=== PATIENT | female | born 1940 | race Caucasian/White ===

== ENCOUNTER 2017-10-11 20:09 | Emergency (ER) | payer MEDICARE, BC ==
[2017-10-11 20:22] VITALS: RESP 20
[2017-10-11] MEDS ORDERED: DIPH,PERTUS(ACELL)TETVAC-LF 0.5 ML VIAL IM ONE (20:45)
[2017-10-11] MEDS ORDERED: ACETAMINOPHEN TAB 325 MG TAB PO STA (20:45)
--- NOTE | 2017-10-11 21:19 | CT ---
EXAMINATION TYPE: CT brain joannaine wo con DATE OF EXAM: 10/11/2017 COMPARISON: NONE HISTORY: Hematoma to left parietal side from fall injury. CT DLP: 1302 mGycm. Automated Exposure Control for Dose Reduction was Utilized. TECHNIQUE: CT scan of the head and cervical spine are performed without contrast. FINDINGS: There is a left parietal scalp hematoma measuring 1.7 cm in greatest thickness. No underly ing calvarial fracture or intracranial hemorrhage is identified. Symmetric prominence of the ventricu lar system and peripheral sulci are compatible with age-related volume loss. Few foci of periventricu lar hypoattenuation are seen, most commonly on the basis of chronic microangiopathy. No suspicious ex tra axial fluid collection. The globes are intact and the visualized sinuses are clear. Cervical spine is visualized in its entirety from C1 through upper thoracic levels and demonstrates s atisfactory alignment without evidence of acute fracture or dislocation. Prevertebral soft tissue ap pears within normal limits. Moderate multilevel degenerative disc disease is seen with moderate neura l foraminal narrowing on the right at C3-C4, moderate to severe on the left at C4-C5, moderate to sev ere on the left and moderate on the right at C5-C6, moderate bilaterally at C6-C7, and mild bilateral ly at 71. There is straightening of usual cervical lordosis. Small posterior disc osteophytic complex es are seen at C4-C5, C5-C6, and C6-C7 as well as to a lesser degree at C7-T1 with mild central canal stenosis at C4-C5. There is degenerative narrowing of the atlantodental interval. Valuation for disc herniation is limited on CT. The C1-C2 articulation is unremarkable. IMPRESSION: 1. There is no acute fracture or dislocation evident in the cervical spine. 2. Left parietal scalp hematoma measuring 1.7 cm with no underlying calvarial fracture or intracrania l hemorrhage. No acute intracranial process. 3. Moderate multilevel degenerative cervical spine resulting in mild spinal canal stenosis at C4-C5 a nd variable degrees of neural foraminal narrowing as described above.
[2017-10-11] MEDS ORDERED: TOPICAL SKIN ADHESIVE 1 EACH AMP TOPICAL ONE (21:40)
--- NOTE | 2017-10-11 21:57 | ED ---
Fall HPI - General Chief Complaint: Fall Stated Complaint: fall/hit head Time Seen by Provider: 10/11/17 20:26 Source: patient Mode of arrival: wheelchair - History of Present Illness Initial Comments: 77 year-old female patient presents to the emergency department today for evaluation after experiencing a fall at home. Patient states that around 7:45 PM she was coming up the stairs when she tripped forward and fell striking her head on the wall. Patient denies any loss of consciousness with the injury. She does report pain to the left forehead. She denies any generalized headache , blurred vision, double vision, dizziness, weakness. Patient was ambulatory after the incident. Denies any leg, hip pain, or upper extremity pain. Denies any nausea or vomiting. Patient denies any neck or back pain. Denies any other injuries. Patient denies any chest pain, shortness of breath, abdominal pain, or difficulties with bowel movements or urination. Patient is unsure when her last tetanus vaccine was given. She does take a baby aspirin daily, however no other anticoagulant medications. - Related Data Home Medications Medication Instructions Recorded Confirmed Aspirin [Adult Low Dose Aspirin EC] 81 mg PO DAILY 10/11/17 10/11/17 Atenolol [Tenormin] 50 mg PO DAILY 10/11/17 10/11/17 Atorvastatin [Lipitor] 10 mg PO HS 10/11/17 10/11/17 Baclofen [Lioresal] 10 mg PO DAILY PRN 10/11/17 10/11/17 Enalapril [Vasotec] 20 mg PO BID 10/11/17 10/11/17 Meloxicam [Mobic] 7.5 mg PO DAILY PRN 10/11/17 10/11/17 Oxybutynin Chloride [Ditropan] 5 mg PO DAILY 10/11/17 10/11/17 busPIRone HCl [Buspar] 10 mg PO TID PRN 10/11/17 10/11/17 Allergies Allergy/AdvReac Type Severity Reaction Status Date / Time Penicillins Allergy Rash/Hives Verified 10/11/17 20:56 Review of Systems ROS Statement: Those systems with pertinent positive or pertinent negative responses have been documented in the HPI. ROS Other: All systems not noted in ROS Statement are negative. Past Medical History Past Medical History: Hyperlipidemia, Hypertension, Supraventricular Tachycardia (SVT) History of Any Multi-Drug Resistant Organisms: None Reported Past Surgical History: Ablation, Hysterectomy, Orthopedic Surgery Past Psychological History: No Psychological Hx Reported Smoking Status: Never smoker Past Alcohol Use History: None Reported Past Drug Use History: None Reported General Exam Limitations: no limitations General appearance: alert, in no apparent distress, other (This is a pleasant elderly female patient in no acute distress. Vital signs upon presentation are temperature 97.9F, pulse 92, respirations 20, blood pressure 151/89, pulse ox 97% on room air.) Head exam: Present: other (And has a hematoma, laceration noted to the left forehead. Swelling extends over into the left upper orbit.) Eye exam: Present: normal appearance, PERRL, EOMI (Without pain or limitation). Absent: scleral icterus, conjunctival injection, periorbital swelling, periorbital tenderness ENT exam: Present: normal exam, normal oropharynx, mucous membranes moist Neck exam: Present: normal inspection, full ROM, other (Nontender, no step-off, no deformity to firm midline palpation of the posterior cervical spine. Full range of motion without pain or limitation.). Absent: tenderness, meningismus, lymphadenopathy Respiratory exam: Present: normal lung sounds bilaterally. Absent: respiratory distress, wheezes, rales, rhonchi, stridor Cardiovascular Exam: Present: regular rate, normal rhythm, normal heart sounds. Absent: systolic murmur, diastolic murmur, rubs, gallop, clicks GI/Abdominal exam: Present: soft, normal bowel sounds. Absent: distended, tenderness, guarding, rebound, rigid Back exam: Present: normal inspection, other (Nontender, no step-off, no deformity to firm midline palpation of the thoracic and lumbar vertebrae. Full range of motion without pain or limitation.). Absent: vertebral tenderness Neurological exam: Present: alert, oriented X3, CN II-XII intact, other ( Acutely responsive) Psychiatric exam: Present: normal affect, normal mood Skin exam: Present: warm, dry, intact, normal color. Absent: rash Course Vital Signs 10/11/17 10/11/17 20:18 22:15 Temperature 97.9 F 97.4 F L Pulse Rate 92 82 Respiratory 20 20 Rate Blood Pressure 151/89 150/93 O2 Sat by Pulse 97 93 L Oximetry Procedures - Laceration Laceration #1 Time Out Performed: Yes Indication: laceration Site: scalp (Left upper forehead) Size (cm): 1 Description: linear Depth: simple, single layer Type of Sutures: other (Dermabond) Patient Tolerated Procedure: well, no complications Medical Decision Making - Medical Decision Making 77-year-old female patient presents to the emergency department today for evaluation after experiencing a fall at home. Physical examination does reveal left forehead hematoma with a 1 cm laceration. Patient is neurologically intact. Strength in all 4 extremities is 5/5. We did perform computed tomography scan of the head and her vehicle spine which showed no acute abnormalities other than a 1.7 cm hematoma to the left frontal scalp. We did repair the laceration with Dermabond. Patient was given Tylenol, did report improvement of her symptoms. We did discuss signs or symptoms of worsening head injury. Signs or symptoms of infection. She is instructed to follow-up with the primary care physician for recheck tomorrow. She is instructed to return here immediately for any new, worsening, or concerning symptoms. She verbalizes understanding and agrees this plan. - Radiology Data Radiology results: report reviewed, image reviewed CT of the brain and C-spine without contrast was performed. Report was reviewed in its entirety. Impression by Dr. Mart shows no acute fracture dislocation evident in the C-spine. Left parietal scalp hematoma measuring 1.7 cm with no underlying calvarial fracture or intracranial hemorrhage. No acute intracranial process. Moderate multilevel degenerative cervical spine resulting in mild spinal canal stenosis at C4 to 5 and variable degrees of neural foraminal narrowing as described above. Disposition Clinical Impression: Traumatic hematoma of forehead, Laceration of forehead without complication, Head injury Disposition: HOME SELF-CARE Condition: Good Instructions: Laceration (ED), Fall Prevention for Older Adults (ED), Head Injury (ED), Skin Adhesive Care (ED), Hematoma (ED) Additional Instructions: Apply ice to the left forehead 20 minutes at a time at least 4 times daily. Monitor wound for signs or symptoms of infection this includes redness, swelling , drainage of pus, fever, or chills. Monitor for signs or symptoms of worsening head injury including but not limited to confusion, dizziness, weakness, persistent headache, nausea, or vomiting. Follow-up with your primary care physician for recheck in 1-2 days. Return here immediately for any new, worsening, or concerning symptoms. Referrals: Rick Kim MD [Primary Care Provider] - 1-2 days Time of Disposition: 21:57
[2017-10-11 22:16] VITALS: BP 150/93; PULSE 82; TEMP 97.4
== END 2017-10-11 22:54 | disposition home or self-care (01) ==
LOC: EC 20:09
DX: S01.81XA Laceration without foreign body of other part of head, initial encounter (principal); E78.5 Hyperlipidemia, unspecified; I10 Essential (primary) hypertension; I47.1 Supraventricular tachycardia; Z23 Encounter for immunization; Z88.0 Allergy status to penicillin; Z79.82 Long term (current) use of aspirin; Z79.899 Other long term (current) drug therapy; W10.9XXA Fall (on) (from) unspecified stairs and steps, initial encounter; Y92.009 Unspecified place in unspecified non-institutional (private) residence as the place of occurrence of the external cause
CPT/HCPCS: 12011; 70450; 72125; 90471; 90715; 99283

== ENCOUNTER 2020-04-22 15:23 | Observation (INO) | payer MEDICARE, BC ==
[2020-04-22] MEDS ORDERED: ONDANSETRON 4 MG/2 ML VIAL IVP STA (15:41)
[2020-04-22] MEDS ORDERED: SODIUM CHLORIDE 0.9% 500 ML 500 ML IV STA (15:41)
--- NOTE | 2020-04-22 15:42 | ED ---
General Adult HPI - General Chief complaint: Weakness Stated complaint: weakness/nausea Time Seen by Provider: 04/22/20 15:30 Source: patient Mode of arrival: wheelchair Limitations: no limitations - History of Present Illness Initial comments: Dictation was produced using [employer] dictation software. please excuse any grammatical, word or spelling errors. This patient was cared for during a federal and state declared state of emergency secondary to Covid 19 Chief Complaint: 80-year-old female past medical history dyslipidemia hypert ension and SVT presents with generalized weakness fatigue and nausea. History of Present Illness: She complains of nausea since yesterday. She states she woke up yesterday feeling absolutely fine. At around lunchtime she began feeling weak and fatigued. She began dry heaving. She has not had any episodes of vomiting. No diarrhea. She has no pain complaints. Patient states that her symptoms remind her of when she was diagnosed with cardiac arrhythmia. She does have history of cardiac ablation. she feels like she does have sensation of the room spinning. She reports that her symptoms are worse with movement especially head movements. She is not having any difficulties with ambulating. She does not feel ataxic or weak or numb in any of her extremities. She has been feeling chills. But denies any fevers or night sweats. The ROS documented in this emergency department record has been reviewed and confirmed by me. Those systems with pertinent positive or negative responses h ave been documented in the HPI. All other systems are other negative and/or noncontributory. PHYSICAL EXAM: General Impression: Alert and oriented x3, not in acute distress HEENT: Normocephalic atraumatic, extra-ocular movements intact, pupils equal and reactive to light bilaterally, mucous membranes moist. Cardiovascular: Heart regular rate and rhythm Chest: Able to complete full sentences, no retractions, no tachypnea Abdomen: abdomen soft, non-tender, non-distended, no organomegaly Musculoskeletal: Pulses present and equal in all extremities, no peripheral edema Motor: no focal deficits noted Neurological: CN II-XII grossly intact, no focal motor or sensory deficits noted Skin: Intact with no visualized rashes Psych: Normal affect and mood ED course: 80-year-old female with past medical history of dyslipidemia hypertension and cardiac dysrhythmia status post ablation presents with generalized weakness fatigue and nausea. Upon arrival shows heart rate of 120. Her pulse feels regular. Her lungs are clear. She has no murmurs. Vital signs are within acceptable limits. She denies any GI symptoms. she has features of benign positional vertigo.labs are within acceptable limits. She has no clear reason for her symptoms. Patient's given Antivert and Zofran and Reglan with very minimal improvement of symptoms. Patient lives at home alone. Disposition options were discussed. Patient is agreeable for admission with consultation to cardiology for persistent tachycardia that didn't really improved with intravenous fluids. She does take a beta kelly. She reports compliance with her medications. Case was discussed with Dr. Musa who is willing to accept patient's care to the observation unit. EKG interpretation: Ventricular rate 112, sinus tachycardia, MT interval 92, QRS 78, QTc 450. No MT prolongation, no QTC prolongation, no ST or T-wave changes noted. No old EKG for comparison. Overall, this EKG is unremarkable - Related Data Home Medications Medication Instructions Recorded Confirmed Aspirin [Adult Low Dose Aspirin EC] 81 mg PO DAILY 10/11/17 04/22/20 Atorvastatin [Lipitor] 10 mg PO DAILY 10/11/17 04/22/20 Baclofen [Lioresal] 10 mg PO DAILY PRN 10/11/17 04/22/20 Meloxicam [Mobic] 7.5 mg PO BID PRN 10/11/17 04/22/20 Oxybutynin Chloride [Ditropan] 5 mg PO DAILY 10/11/17 04/22/20 atenoloL [Tenormin] 50 mg PO DAILY 10/11/17 04/22/20 busPIRone HCl [Buspar] 15 mg PO BID 10/11/17 04/22/20 Allopurinol [Zyloprim] 100 mg PO DAILY 04/22/20 04/22/20 Lisinopril-Hctz 20-25 mg 1 tab PO DAILY 04/22/20 04/22/20 [Zestoretic 20-25] Omeprazole 20 mg PO DAILY PRN 04/22/20 04/22/20 amLODIPine [Norvasc] 5 mg PO HS 04/22/20 04/22/20 Allergies Allergy/AdvReac Type Severity Reaction Status Date / Time Penicillins Allergy Rash/Hives Verified 04/22/20 16:51 Review of Systems ROS Statement: Those systems with pertinent positive or pertinent negative responses have been documented in the HPI. ROS Other: All systems not noted in ROS Statement are negative. Past Medical History Past Medical History: Hyperlipidemia, Hypertension, Supraventricular Tachycardia (SVT) History of Any Multi-Drug Resistant Organisms: None Reported Past Surgical History: Ablation, Hysterectomy, Orthopedic Surgery Past Psychological History: No Psychological Hx Reported Smoking Status: Never smoker Past Alcohol Use History: Rare Past Drug Use History: None Reported General Exam Limitations: no limitations Course Vital Signs 04/22/20 04/22/20 04/22/20 15:24 16:22 16:44 Temperature 97.8 F 97.9 F 97.9 F Pulse Rate 120 H 112 H 110 H Pulse Rate [ 112 H Filter Operator ] Respiratory 18 14 14 Rate Blood Pressure 163/89 138/93 135/89 O2 Sat by Pulse 99 96 Oximetry 04/22/20 04/22/20 17:07 17:53 Temperature 97.9 F Pulse Rate 112 H 109 H Pulse Rate [ Filter Operator ] Respiratory 14 14 Rate Blood Pressure 141/84 142/80 O2 Sat by Pulse 98 97 Oximetry Medical Decision Making - Lab Data Result diagrams: 04/22/20 16:22 04/22/20 16:22 Lab Results 04/22/20 04/22/20 04/22/20 Range/Units 16:22 16:22 16:22 WBC 7.0 (3.8-10.6) k/uL RBC 4.05 (3.80-5.40) m/uL Hgb 13.0 (11.4-16.0) gm/dL Hct 39.8 (34.0-46.0) % MCV 98.2 (80.0-100.0) fL MCH 32.1 (25.0-35.0) pg MCHC 32.7 (31.0-37.0) g/dL RDW 12.7 (11.5-15.5) % Plt Count 245 (150-450) k/uL Neutrophils % 82 % Lymphocytes % 13 % Monocytes % 4 % Eosinophils % 0 % Basophils % 0 % Neutrophils # 5.7 (1.3-7.7) k/uL Lymphocytes # 0.9 L (1.0-4.8) k/uL Monocytes # 0.3 (0-1.0) k/uL Eosinophils # 0.0 (0-0.7) k/uL Basophils # 0.0 (0-0.2) k/uL Sodium 138 (137-145) mmol/L Potassium 4.2 (3.5-5.1) mmol/L Chloride 102 (98-107) mmol/L Carbon Dioxide 24 (22-30) mmol/L Anion Gap 12 mmol/L BUN 14 (7-17) mg/dL Creatinine 0.84 (0.52-1.04) mg/dL Est GFR (CKD-EPI)AfAm 76 (>60 ml/min/1.73 sqM) Est GFR (CKD-EPI)NonAf 66 (>60 ml/min/1.73 sqM) Glucose 111 H (74-99) mg/dL Plasma Lactic Acid [place] (0.7-2.0) mmol/L Calcium 10.4 H (8.4-10.2) mg/dL Magnesium 1.8 (1.6-2.3) mg/dL Total Bilirubin 1.2 (0.2-1.3) mg/dL AST 38 H (14-36) U/L ALT 27 (4-34) U/L Alkaline Phosphatase 78 (38-126) U/L Troponin I (0.000-0.034) ng/mL NT-Pro-B Natriuret Pep pg/mL Total Protein 8.3 H (6.3-8.2) g/dL Albumin 5.3 H (3.5-5.0) g/dL Lipase 162 (23-300) U/L Urine Color Light Yellow Urine Appearance Clear (Clear) Urine pH 5.5 (5.0-8.0) Ur Specific [place] 1.004 (1.001-1.035) Urine Protein Negative (Negative) Urine Glucose (UA) Negative (Negative) Urine Ketones Negative (Negative) Urine Blood Negative (Negative) Urine Nitrite Negative (Negative) Urine Bilirubin Negative (Negative) Urine Urobilinogen <2.0 (<2.0) mg/dL Ur Leukocyte Esterase Trace H (Negative) Urine RBC <1 (0-5) /hpf Urine WBC 2 (0-5) /hpf Ur Squamous Epith Cells <1 (0-4) /hpf Urine Bacteria Rare H (None) /hpf 04/22/20 04/22/20 04/22/20 Range/Units 16:22 16:22 16:22 WBC (3.8-10.6) k/uL RBC (3.80-5.40) m/uL Hgb (11.4-16.0) gm/dL Hct (34.0-46.0) % MCV (80.0-100.0) fL MCH (25.0-35.0) pg MCHC (31.0-37.0) g/dL RDW (11.5-15.5) % Plt Count (150-450) k/uL Neutrophils % % Lymphocytes % % Monocytes % % Eosinophils % % Basophils % % Neutrophils # (1.3-7.7) k/uL Lymphocytes # (1.0-4.8) k/uL Monocytes # (0-1.0) k/uL Eosinophils # (0-0.7) k/uL Basophils # (0-0.2) k/uL Sodium (137-145) mmol/L Potassium (3.5-5.1) mmol/L Chloride (98-107) mmol/L Carbon Dioxide (22-30) mmol/L Anion Gap mmol/L BUN (7-17) mg/dL Creatinine (0.52-1.04) mg/dL Est GFR (CKD-EPI)AfAm (>60 ml/min/1.73 sqM) Est GFR (CKD-EPI)NonAf (>60 ml/min/1.73 sqM) Glucose (74-99) mg/dL Plasma Lactic Acid [place] 1.4 (0.7-2.0) mmol/L Calcium (8.4-10.2) mg/dL Magnesium (1.6-2.3) mg/dL Total Bilirubin (0.2-1.3) mg/dL AST (14-36) U/L ALT (4-34) U/L Alkaline Phosphatase (38-126) U/L Troponin I <0.012 (0.000-0.034) ng/mL NT-Pro-B Natriuret Pep 113 pg/mL Total Protein (6.3-8.2) g/dL Albumin (3.5-5.0) g/dL Lipase (23-300) U/L Urine Color Urine Appearance (Clear) Urine pH (5.0-8.0) Ur Specific [place] (1.001-1.035) Urine Protein (Negative) Urine Glucose (UA) (Negative) Urine Ketones (Negative) Urine Blood (Negative) Urine Nitrite (Negative) Urine Bilirubin (Negative) Urine Urobilinogen (<2.0) mg/dL Ur Leukocyte Esterase (Negative) Urine RBC (0-5) /hpf Urine WBC (0-5) /hpf Ur Squamous Epith Cells (0-4) /hpf Urine Bacteria (None) /hpf Disposition Clinical Impression: Tachycardia, Dizziness Disposition: ADMITTED IP TO THIS HOSP Condition: Fair Referrals: Rick Kim MD [STAFF PHYSICIAN] - 1-2 days Decision Time: 18:30
[2020-04-22 16:27] LABS: Basophils % (A) 0 %; Eosinophils % (A) 0 %; HCT 39.8 % (34.0-46.0); Lymphocytes # (A) 0.9 k/uL (1.0-4.8); Lymphocytes % (A) 13 %; MCH 32.1 pg (25.0-35.0); MCHC 32.7 g/dL (31.0-37.0); MCV 98.2 fL (80.0-100.0); Mean Platelet Volume 6.9; Monocytes # (A) 0.3 k/uL (0-1.0); Monocytes % (A) 4 %; Neutrophils # (A) 5.7 k/uL (1.3-7.7); Neutrophils % (A) 82 %; Platelet Count 245 k/uL (150-450); RBC 4.05 m/uL (3.80-5.40); RDW 12.7 % (11.5-15.5)
[2020-04-22 16:35] LABS: Albumin 5.3 g/dL (3.5-5.0); Calcium 10.4 mg/dL (8.4-10.2); Magnesium 1.8 mg/dL (1.6-2.3); Potassium 4.2 mmol/L (3.5-5.1); Total Bilirubin 1.2 mg/dL (0.2-1.3); Total Protein 8.3 g/dL (6.3-8.2)
[2020-04-22 16:43] LABS: Appearance,Urine Clear (Clear); Bacteria,Urine Rare /hpf; Bilirubin,Urine Negative (Negative); Blood,Urine Negative (Negative); Color,Urine Light Yellow; Glucose,Urine (UA) Negative (Negative); Ketones,Urine Negative (Negative); Leukocyte Esterase,Urine Trace (Negative); Nitrite,Urine Negative (Negative); PH, Urine 5.5 (5.0-8.0); Protein,Urine Negative (Negative); RBC,Urine <1 /hpf (0-5); Specific Gravity,Urine 1.004 (1.001-1.035); Squamous Epithelial Cell,Urine <1 /hpf (0-4); Urobilinogen,Urine <2.0 mg/dL (<2.0); WBC,Urine 2 /hpf (0-5)
[2020-04-22] MEDS ORDERED: MECLIZINE 12.5 MG TAB PO STA (16:59)
[2020-04-22] MEDS ORDERED: METOCLOPRAMIDE 5 MG/ML 2 ML VIAL IVP STA (17:01)
[2020-04-22] MEDS ORDERED: SODIUM CHLORIDE 0.9% 1,000 ML IV STA (18:14)
[2020-04-22] MEDS ORDERED: NALOXONE 0.4 MG/ML 1 ML VIAL IV PRN (18:26)
[2020-04-22] MEDS ORDERED: ACETAMINOPHEN TAB 325 MG TAB PO PRN (18:26)
--- NOTE | 2020-04-22 18:33 | XR ---
EXAMINATION TYPE: XR chest 2V DATE OF EXAM: 04/22/2020 COMPARISON: NONE HISTORY: Tachycardia TECHNIQUE: 2 views FINDINGS: Heart is normal. Lungs are clear of infiltrate. There is no heart failure. There are chest leads. There is some arthritic change at the shoulder joints. IMPRESSION: No active cardiopulmonary disease. Normal heart. No change.
[2020-04-22] MEDS: SODIUM CHLORIDE 0.9% 1,000 ML IV SCH (21:09)
[2020-04-22] MEDS ORDERED: PANTOPRAZOLE 40 MG TABLET PO PRN (21:59)
[2020-04-22] MEDS ORDERED: amLODIPine 5 MG TAB PO SCH (22:00)
[2020-04-22] MEDS: ATORVASTATIN 10 MG TAB PO SCH (22:42)
[2020-04-22] MEDS: busPIRone HCl 10 MG TAB PO SCH (22:42)
--- NOTE | 2020-04-22 23:49 | P.HPIM ---
History of Present Illness H&P Date: 04/22/20 Chief Complaint: Severe arrhythmia, severe tiredness, history of A. fib, hyp ertension and hy 80-year-old female one of Dr. Osmar Kim's patient with past medical history of A. fib post ablation 12 years ago, history of hypertension hyperlipidemia and still having supraventricular tachycardia on and off. Patient has been doing very well has not been in the hospital for long time she is taking her medication on time with no major problem. In the last 48 hours patient to look to have all the sudden severe onset of tiredness fatigue lightheadedness and dizziness not feeling well with mild shortness of breath without chest pain and Feeling her heart is pounding with more arrhythmia than before and felt to be slightly bit tachycardic. Patient today have an episode lasted little bit longer than expected and did not feel good with it was worried about being in A. fib with rapid ventricular tachycardia might require more attention ended up asking her neighbor to drive her to the emergency department where was seen at [facility]. Patient heart monitor and EKG showed significant tachycardia with pulse rate running over 120 beats per minutes look more regular with slight PVCs with no sign of A. fib at the time. Her lab values did not show any abnormality in her UA TSH was normal her total protein was mildly elevated with mildly elevated calcium as well. Pat ient CK with troponin was negative with decided to admit patient to the hospital we will let titrate her beta kelly for now keep watching overnight for any A. fib any elevated troponin echocardiogram will be order and patient be seen cardiology tomorrow. Review of Systems CONSTITUTIONAL: Well-developed no acute respiratory distress. EYES: No icterus sclerae, no conjunctivitis. EARS, NOSE, MOUTH, THROAT, and FACE: No sore throat, lymphadenopathy, carotid bruits or deformity. RESPIRATORY: Mild shortness of breath no cough or wheezes. CARDIOVASCULAR: Positive PND orthopnea positive palpitation no angina. GASTROINTESTINAL: No Abd pain, Nausea or vomiting, no Diarrhea or constipation, No GI Bleed, no distention or masses. GENITOURINARY: Negative for Hematuria or UTI, no kidney stones. INTEGUMENT/BREAST: Negative for any muscular injury with mild osteoarthritis.. HEMATOLOGIC/LYMPHATIC: Negative for bleed or purpura. MUSCULOSKELTAL: Negative for Myalgia or arthralgia. NEURLOGICAL: No LOC, Sz or syncope, blurred vision dizziness or abnormality.. BEHAVIORAL/PSYCH: Negative. ENDOCRINE: Negative. Social history: Patient does not smoke, [place] and abuse, she is and lives home alone. Family history: Her father dying in his 80s from metastasis take bone cancer, mother dying in her 80s from cancer possible breast. Patient had 4 siblings 2 brothers and 2 sister all living and well she had 5 children one of them committed suicide the rest are doing very well. Past Medical History Past Medical History: Hyperlipidemia, Hypertension, Supraventricular Tachycardia (SVT) History of Any Multi-Drug Resistant Organisms: None Reported Past Surgical History: Ablation, Hysterectomy, Orthopedic Surgery Past Psychological History: No Psychological Hx Reported Smoking Status: Never smoker Past Alcohol Use History: Rare Past Drug Use History: None Reported Medications and Allergies Home Medications Medication Instructions Recorded Confirmed Type Aspirin [Adult Low Dose Aspirin EC] 81 mg PO DAILY 10/11/17 04/22/20 History Atorvastatin [Lipitor] 10 mg PO DAILY 10/11/17 04/22/20 History Baclofen [Lioresal] 10 mg PO DAILY PRN 10/11/17 04/22/20 History Meloxicam [Mobic] 7.5 mg PO BID PRN 10/11/17 04/22/20 History Oxybutynin Chloride [Ditropan] 5 mg PO DAILY 10/11/17 04/22/20 History atenoloL [Tenormin] 50 mg PO DAILY 10/11/17 04/22/20 History busPIRone HCl [Buspar] 15 mg PO BID 10/11/17 04/22/20 History Allopurinol [Zyloprim] 100 mg PO DAILY 04/22/20 04/22/20 History Lisinopril-Hctz 20-25 mg 1 tab PO DAILY 04/22/20 04/22/20 History [Zestoretic 20-25] Omeprazole 20 mg PO DAILY PRN 04/22/20 04/22/20 History amLODIPine [Norvasc] 5 mg PO HS 04/22/20 04/22/20 History Allergies Allergy/AdvReac Type Severity Reaction Status Date / Time Penicillins Allergy Rash/Hives Verified 04/22/20 16:51 Physical Exam Vitals: Vital Signs Temp Pulse Pulse Pulse Resp BP BP 04/22/20 19:05 98.6 F 104 H 17 121/71 04/22/20 17:53 109 H 14 142/80 04/22/20 17:07 97.9 F 112 H 14 141/84 04/22/20 16:44 97.9 F 110 H 14 135/89 04/22/20 16:22 97.9 F 112 H 112 H 14 138/93 04/22/20 15:24 97.8 F 120 H 18 163/89 Pulse Ox 04/22/20 19:05 96 04/22/20 17:53 97 04/22/20 17:07 98 04/22/20 16:44 96 04/22/20 16:22 04/22/20 15:24 99 Intake and Output 04/22/20 04/22/20 04/23/20 14:59 22:59 06:59 Intake Total 200 Balance 200 Intake: Oral 200 Other: Weight 66.224 kg General Appearance: Alert, cooperative, no distress, appears stated age. Neck HEENT: Supple, no lymphadenopathy, no thyroid enlargement, no carotid bruits. Lungs: Clear to auscultation without crackles or wheezes no rhonchi, no deformity. Chest Wall: Chest wall normal expansion with deep inspiration no tenderness and no deformity was found on exam, no costochondral pain or discomfort. Heart: Regular rate and rhythm, S1, S2 positive history positive mild tachycardia. Back: Symmetric, no curvature, ROM normal, no CVA tenderness. Abdomen: Soft, non-tender, bowel sounds active all four quadrants, no masses, no organomegaly. Extremities: Extremities normal, atraumatic, no cyanosis or edema. Pulses: 2+ and symmetric. Skin: Skin color, texture, tugor normal, no rashes or lesions. Neurologic: Alert oriented x3 cranial nerves II through XII intact, no motor deficit, no abnormal balance or gait. Results CBC & Chem 7: 04/22/20 16:22 04/22/20 16:22 Labs: Abnormal Lab Results - Last 24 Hours (Table) 04/22/20 04/22/20 04/22/20 Range/Units 16:22 16:22 16:22 Lymphocytes # 0.9 L (1.0-4.8) k/uL Glucose 111 H (74-99) mg/dL Calcium 10.4 H (8.4-10.2) mg/dL AST 38 H (14-36) U/L Total Protein 8.3 H (6.3-8.2) g/dL Albumin 5.3 H (3.5-5.0) g/dL Ur Leukocyte Esterase Trace H (Negative) Urine Bacteria Rare H (None) /hpf Thrombosis Risk Factor Assmnt - DVT/VTE Prophylaxis DVT/VTE Prophylaxis: Pharmacologic Prophylaxis ordered, Mechanical Prophylaxis ordered - Choose All That Apply Any of the Below Risk Factors Present?: Yes Each Factor Represents 1 point: Obesity (BMI >25) Other Risk Factors: Yes Each Risk Factor Represents 3 Points: Age 75 years or older Other congenital or acquired thrombophilia - If yes, enter type in comment: No Thrombosis Risk Factor Assessment Total Risk Factor Score: 4 Thrombosis Risk Factor Assessment Level: Moderate Risk Assessment and Plan Assessment: 1 severe tachycardia: So far looks like PVCs patient will be admitted to the hospital continue to watch for any A. fib or any abnormality, echocardiogram, Holter monitor and thyroid test will be done we'll consult cardiology patient beta kelly will be titrated this point. 2 severe tiredness fatigue and dizziness: Most likely secondary to arrhythmia with mild hypertension and mild hypoxia from tachycardia continue to watch for any other abnormality with her hemodynamic status. 3 history of A. fib with RVR: Post ablation therapy patient remain on beta kelly currently she is not in any anticoagulation. 4 hypertension: Remain on amlodipine 5 mg a day along with lisinopril HCT 20/25 mg daily and atenolol 50 mg daily continue medication. 5 hyperlipidemia: Remain on atorvastatin 10 mg daily continue medication. 6 overactive bladder: Remain on oxybutynin 5 mg a day. 7 severe GERD: On omeprazole 20 mg a day. 8 history of gout: Well control so far been on allopurinol 100 mg daily. 9 GI prophylaxis: Remain on omeprazole. 10 DVT prophylaxis: Patient be on heparin subcutaneous for now. CODE STATUS: Full code. Admit patient to observation status for overnight stay.
[2020-04-23] MEDS ORDERED: MELOXICAM 7.5 MG TAB PO PRN
[2020-04-23] MEDS ORDERED: BACLOFEN 10 MG TAB PO PRN
[2020-04-23 08:05] VITALS: RESP 16; TEMP 98
[2020-04-23] MEDS: busPIRone HCl 10 MG TAB PO SCH (08:07)
[2020-04-23] MEDS: ATORVASTATIN 10 MG TAB PO SCH (08:07)
[2020-04-23] MEDS ORDERED: HEPARIN SODIUM,PORCINE 5,000 UNIT/ML 1 ML VIAL SQ SCH (09:00)
[2020-04-23] MEDS ORDERED: OXYBUTYNIN CHLORIDE 5 MG TAB PO SCH (09:00)
[2020-04-23] MEDS ORDERED: atenoloL 50 MG TAB PO SCH ×3 (09:00→21:00)
[2020-04-23] MEDS ORDERED: LISINOPRIL-HCTZ 20-25 MG 1 EACH TAB PO SCH (09:00)
[2020-04-23] MEDS ORDERED: allopurinoL 100 MG TAB PO SCH (09:00)
[2020-04-23] MEDS ORDERED: ASPIRIN 81 MG PO SCH (09:00)
[2020-04-23 09:13] LABS: Cholesterol 153 mg/dL (<200); HDL Cholesterol 56 mg/dL (40-60); LDL Cholesterol,Calculated 77 mg/dL (0-99); Triglycerides 101 mg/dL (<150)
[2020-04-23 09:15] LABS: Albumin 4.2 g/dL (3.5-5.0); Calcium 9.3 mg/dL (8.4-10.2); Magnesium 1.6 mg/dL (1.6-2.3); Total Bilirubin 1.4 mg/dL (0.2-1.3); Total Protein 6.6 g/dL (6.3-8.2)
[2020-04-23 09:26] LABS: Basophils % (A) 0 %; Eosinophils % (A) 1 %; HGB 11.4 gm/dL (11.4-16.0); Lymphocytes # (A) 0.7 k/uL (1.0-4.8); Lymphocytes % (A) 14 %; MCH 31.9 pg (25.0-35.0); MCHC 32.6 g/dL (31.0-37.0); MCV 97.9 fL (80.0-100.0); Mean Platelet Volume 6.9; Monocytes # (A) 0.2 k/uL (0-1.0); Monocytes % (A) 4 %; Neutrophils # (A) 3.9 k/uL (1.3-7.7); Neutrophils % (A) 80 %; Platelet Count 229 k/uL (150-450); RBC 3.57 m/uL (3.80-5.40); RDW 13.1 % (11.5-15.5); WBC 4.9 k/uL (3.8-10.6)
--- NOTE | 2020-04-23 10:01 | P.CRDCN ---
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 Hurt, hypertension and dyslipidemia. She does not follow in the office with a pc maintenance technician. We have been asked to see in consultation for tachycardia. Stented to the emergency department with a two-week history of intermittent nausea, palpitations and generalized weakness. Her nausea increased and severity yesterday prompting her to come to the hospital for further evaluation. On arrival an EKG was obtained revealing sinus tachycardia heart rate of 112. She does feel her heart racing fast. She states that she gets up and uses the restroom her heart rate increases. Telemetry tracings indicates sinus tachycard ia with no arrhythmias. She is seen and examined resting comfortably sitting up in bed in no acute distress. She states her nausea has subsided since admission. Blood pressure 130/75 heart rate currently 102. Laboratory data reviewed, WBC 4.9, hemoglobin 11.4, platelets 229, d-dimer 0.3, sodium 138, potassium 4.0, creatinine 0.84, magnesium 1.8, TSH 3.14, cardiac enzymes negative 1, NT proBNP 113, LDL 77 HDL 56. Currently maintained on atenolol 50 mg daily, aspirin 81 mg daily, atorvastatin 10 mg daily, lisinopril/HCTZ 20/25 mg daily and amlodipine 5 mg daily. REVIEW OF SYSTEMS At the time of my exam: CONSTITUTIONAL: Denies fever or chills. CARDIOVASCULAR: Denies chest pain, shortness of breath, orthopnea, PND or palpitations. RESPIRATORY: Denies cough. GASTROINTESTINAL: Denies abdominal pain, diarrhea, constipation, nausea or vomiting. MUSCULOSKELETAL: Denies myalgias. NEUROLOGIC: Denies numbness, tingling or weakness. ENDOCRINE: Denies fatigue, weight change, polydipsia or polyurina. GENITOURINARY: Denies burning, hematuria or urgency with micturation. HEMATOLOGIC: Denies history of anemia or bleeding. PHYSICAL EXAMINATION CONSTITUTIONAL: No apparent distress. HEENT: Head is normocephalic. Pupils are equal, round. Sclerae anicteric. Mucous membranes of the mouth are moist. No JVD. No carotid bruit. CHEST EXAMINATION: Lungs are clear to auscultation. No chest wall tenderness is noted on palpation or with deep breathing. HEART EXAMINATION: Regular rate and rhythm. S1, S2 heard. No murmurs, gallops or rub. ABDOMEN: Soft, nontender. Positive bowel sounds. EXTREMITIES: 2+ peripheral pulses, no lower extremity edema and no calf tenderness. NEUROLOGIC EXAMINATION: Patient is awake, alert and oriented x3. ASSESSMENT Sinus tachycardia Generalized weakness and fatigue Palpitations Nausea Hypertension Dyslipidemia, controlled on current medical regimen History of SVT status post ablation 12 years ago PLAN At this point there is no documented arrhythmia. Sinus mechanism with episodes of sinus tachycardia only noted. Increase atenolol to 50 mg BID. Discontinue amlodipine. Echocardiogram has been obtained and will be reviewed. Check for orthostatic changes. Thank you kindly for this consultation. Nurse Practitioner note has been reviewed, I agree with a documented findings and plan of care. Patient was seen and examined. Past Medical History Past Medical History: Hyperlipidemia, Hypertension, Supraventricular Tachycardia (SVT) History of Any Multi-Drug Resistant Organisms: None Reported Past Surgical History: Ablation, Hysterectomy, Orthopedic Surgery Past Psychological History: No Psychological Hx Reported Smoking Status: Never smoker Past Alcohol Use History: Rare Past Drug Use History: None Reported Medications and Allergies Home Medications Medication Instructions Recorded Confirmed Type Aspirin [Adult Low Dose Aspirin EC] 81 mg PO DAILY 10/11/17 04/22/20 History Atorvastatin [Lipitor] 10 mg PO DAILY 10/11/17 04/22/20 History Baclofen [Lioresal] 10 mg PO DAILY PRN 10/11/17 04/22/20 History Meloxicam [Mobic] 7.5 mg PO BID PRN 10/11/17 04/22/20 History Oxybutynin Chloride [Ditropan] 5 mg PO DAILY 10/11/17 04/22/20 History atenoloL [Tenormin] 50 mg PO DAILY 10/11/17 04/22/20 History busPIRone HCl [Buspar] 15 mg PO BID 10/11/17 04/22/20 History Allopurinol [Zyloprim] 100 mg PO DAILY 04/22/20 04/22/20 History Lisinopril-Hctz 20-25 mg 1 tab PO DAILY 04/22/20 04/22/20 History [Zestoretic 20-25] Omeprazole 20 mg PO DAILY PRN 04/22/20 04/22/20 History amLODIPine [Norvasc] 5 mg PO HS 04/22/20 04/22/20 History Allergies Allergy/AdvReac Type Severity Reaction Status Date / Time Penicillins Allergy Rash/Hives Verified 04/22/20 16:51 Physical Exam Vitals: Vital Signs Temp Pulse Pulse Pulse Resp BP BP 04/23/20 08:04 98.0 F 102 H 16 130/75 04/23/20 03:00 97.7 F 106 H 17 108/70 04/22/20 21:00 98.6 F 104 H 16 121/71 04/22/20 19:05 98.6 F 104 H 17 121/71 04/22/20 17:53 109 H 14 142/80 04/22/20 17:07 97.9 F 112 H 14 141/84 04/22/20 16:44 97.9 F 110 H 14 135/89 04/22/20 16:22 97.9 F 112 H 112 H 14 138/93 04/22/20 15:24 97.8 F 120 H 18 163/89 Pulse Ox 04/23/20 08:04 94 L 04/23/20 03:00 96 04/22/20 21:00 96 04/22/20 19:05 96 04/22/20 17:53 97 04/22/20 17:07 98 04/22/20 16:44 96 04/22/20 16:22 04/22/20 15:24 99 Intake and Output 04/22/20 04/23/20 04/23/20 22:59 06:59 14:59 Intake Total 200 200 Balance 200 200 Intake: Oral 200 200 Other: Voiding Method Toilet Toilet # Voids 1 1 Weight 66.224 kg Results 04/23/20 08:47 04/23/20 08:47 Cardiac Enzymes 04/22/20 04/22/20 Range/Units 16:22 16:22 AST 38 H (14-36) U/L Troponin I <0.012 (0.000-0.034) ng/mL CBC 04/22/20 Range/Units 16:22 WBC 7.0 (3.8-10.6) k/uL RBC 4.05 (3.80-5.40) m/uL Hgb 13.0 (11.4-16.0) gm/dL Hct 39.8 (34.0-46.0) % Plt Count 245 (150-450) k/uL Comprehensive Metabolic Panel 04/22/20 Range/Units 16:22 Sodium 138 (137-145) mmol/L Potassium 4.2 (3.5-5.1) mmol/L Chloride 102 (98-107) mmol/L Carbon Dioxide 24 (22-30) mmol/L BUN 14 (7-17) mg/dL Creatinine 0.84 (0.52-1.04) mg/dL Glucose 111 H (74-99) mg/dL Calcium 10.4 H (8.4-10.2) mg/dL AST 38 H (14-36) U/L ALT 27 (4-34) U/L Alkaline Phosphatase 78 (38-126) U/L Total Protein 8.3 H (6.3-8.2) g/dL Albumin 5.3 H (3.5-5.0) g/dL Current Medications Generic Name Dose Route Start Last Admin Trade Name Freq PRN Reason Stop Dose Admin Acetaminophen 650 mg 04/22/20 18:26 Acetaminophen Tab 325 Mg Tab PO Q6HR PRN Mild Pain or Fever > 100.5 Allopurinol 100 mg 04/23/20 09:00 04/23/20 08:06 Allopurinol 100 Mg Tab PO 100 mg DAILY SADIE Administration Aspirin 81 mg 04/23/20 09:00 04/23/20 08:06 Aspirin 81 Mg PO 81 mg DAILY SADIE Administration Atenolol 50 mg 04/23/20 21:00 Atenolol 50 Mg Tab PO BID SADIE Atorvastatin Calcium 10 mg 04/22/20 22:00 04/23/20 08:07 Atorvastatin 10 Mg Tab PO Not Given DAILY SADIE Baclofen 10 mg 04/23/20 00:00 Baclofen 10 Mg Tab PO DAILY PRN Muscle Pain Buspirone HCl 15 mg 04/22/20 22:00 04/23/20 08:07 Buspirone Hcl 10 Mg Tab PO 15 mg BID SADIE Administration Lisinopril/HCTZ 1 each 04/23/20 09:00 04/23/20 08:07 Lisinopril-Hctz 20-25 Mg 1 Each Tab PO 1 each DAILY SADIE Administration Heparin Sodium (Porcine) 5,000 unit 04/23/20 09:00 04/23/20 08:07 Heparin Sodium,Porcine 5,000 Unit/Ml 1 Ml Vial SQ 5,000 unit Q12HR SADIE Administration Sodium Chloride 1,000 mls @ 60 mls/hr 04/22/20 18:30 04/22/20 21:09 Saline 0.9% IV 60 mls/hr .[id number] SADIE Administration Meloxicam 7.5 mg 04/23/20 00:00 Meloxicam 7.5 Mg Tab PO BID PRN Pain Naloxone HCl 0.2 mg 04/22/20 18:26 Naloxone 0.4 Mg/Ml 1 Ml Vial IV Q2M PRN Opioid Reversal Oxybutynin Chloride 5 mg 04/23/20 09:00 04/23/20 08:07 Oxybutynin Chloride 5 Mg Tab PO 5 mg DAILY SADIE Administration Pantoprazole Sodium 40 mg 04/22/20 21:59 Pantoprazole 40 Mg Tablet PO DAILY PRN Heartburn Intake and Output 04/22/20 04/23/20 04/23/20 22:59 06:59 14:59 Intake Total 200 200 Balance 200 200 Intake: Oral 200 200 Other: Voiding Method Toilet Toilet # Voids 1 1 Weight 66.224 kg 04/22/20 16:22 04/22/20 16:22
--- NOTE | 2020-04-23 10:28 | ECHOF ---
Referral Reason:tachycardia MEASUREMENTS -------- HEIGHT: 162.6 cm WEIGHT: 66.2 kg BP: RVIDd: 2.3 cm (< 3.3) IVSd: 1.0 cm (0.6 - 1.1) LVIDd: 3.4 cm (3.9 - 5.3) LVPWd: 0.9 cm (0.6 - 1.1) IVSs: 1.1 cm LVIDs: 2.5 cm LVPWs: 1.5 cm LA Diam: 3.2 cm (2.7 - 3.8) Ao Diam: 2.5 cm (2.0 - 3.7) AV Cusp: 2.0 cm (1.5 - 2.6) MV EXCURSION: 14.967 mm (> 18.000) MV EF SLOPE: 82 mm/s (70 - 150) EPSS: 0.2 cm RAP: 5.00 mmHg RVSP: 33.10 mmHg FINDINGS -------- Sinus rhythm. This was a technically good study. LV size, wall thickness and systolic function are normal, with an EF greater than 55%. The left teodoro tricular size is normal. The right ventricle is normal in size. The left atrial size is normal. The right atrial size is normal. There is mild aortic regurgitation. Mild mitral regurgitation is present. Mild tricuspid regurgitation present. Right ventricular systolic pressure is normal at < 35 mmHg. Trace/mild (physiologic) pulmonic regurgitation. The aortic root size is normal. There is no pericardial effusion. CONCLUSIONS -------- 1. Sinus rhythm. 2. LV size, wall thickness and systolic function are normal, with an EF greater than 55%. 3. The left ventricular size is normal. 4. The right ventricle is normal in size. 5. The left atrial size is normal. 6. The right atrial size is normal. 7. There is mild aortic regurgitation. 8. Mild mitral regurgitation is present. 9. Mild tricuspid regurgitation present. 10. Trace/mild (physiologic) pulmonic regurgitation. 11. The aortic root size is normal. 12. There is no pericardial effusion. MECHANICAL SPREADER OPERATOR: Madiha Cardoso, [facility]
--- NOTE | 2020-04-23 10:43 | P.DS ---
Providers Date of admission: 04/22/20 18:27 Expected date of discharge: 04/23/20 Attending physician: Rick Musa Consults: 04/22/20 18:09 Consult Physician Routine Consulting Provider: Michael Humphries Consult Reason/Comments: tachycardia Do you want consulting provider notified?: Yes Primary care physician: Osmar Kim [facility] Course: 80-year-old female one of Dr. Osmar Kim's patient with past medical history of A. fib post ablation 12 years ago, history of hypertension hyperlipidemia and still having supraventricular tachycardia on and off. Patient has been doing very well has not been in the hospital for long time she is taking her medication on time with no major problem. In the last 48 hours patient to look to have all the sudden severe onset of tiredness fatigue lightheadedness and dizziness not feeling well with mild shortness of breath without chest pain and Feeling her heart is pounding with more arrhythmia than before and felt to be slightly bit tachycardic. Patient today have an episode lasted little bit longer than expected and did not feel good with it was worried about being in A. fib with rapid ventricular tachycardia might require more attention ended up asking her neighbor to drive her to the emergency department where was seen at [facility]. Patient heart monitor and EKG showed significant tachycardia with pulse rate running over 120 beats per minutes look more regular with slight PVCs with no sign of A. fib at the time. Her lab values did not show any abnormality in her UA TSH was normal her total protein was mildly elevated with mildly elevated calcium as well. Patient CK with troponin was negative with decided to admit patient to the hospital we will let titrate her beta kelly for now keep watching overnight for any A. fib any elevated troponin echocardiogram will be order and patient be seen cardiology tomorrow. 04/23: Patient seen resting in bed this morning. Reports the palpitations are less after atenolol was increased to twice a day. Patient remains in sinus rhythm, no documented arrhythmia. Echo revealed EF greater than 55% mild MR and TR are present. Vital signs are stable, heart rate remains controlled in the low 100s, blood pressure 130/75. Plan to discharge patient home later today after seen by cardiology and follow up with primary care and cardio as outpatient. Discharge diagnosis 1 severe tachycardia: 2 severe tiredness fatigue and dizziness: 3 history of A. fib with RVR: 4 hypertension: 5 hyperlipidemia: 6 overactive bladder: 7 severe GERD: 8 history of gout: Patient Condition at Discharge: Stable Plan - Discharge Summary Discharge Rx Participant: No New Discharge Prescriptions: New atenoloL [Tenormin] 50 mg PO BID tab Continue busPIRone HCl [Buspar] 15 mg PO BID Meloxicam [Mobic] 7.5 mg PO BID PRN PRN Reason: Pain Baclofen [Lioresal] 10 mg PO DAILY PRN PRN Reason: Muscle Pain Oxybutynin Chloride [Ditropan] 5 mg PO DAILY Atorvastatin [Lipitor] 10 mg PO DAILY Aspirin [Adult Low Dose Aspirin EC] 81 mg PO DAILY Allopurinol [Zyloprim] 100 mg PO DAILY Omeprazole 20 mg PO DAILY PRN PRN Reason: Heartburn Lisinopril-Hctz 20-25 mg [Zestoretic 20-25] 1 tab PO DAILY Discontinued atenoloL [Tenormin] 50 mg PO DAILY amLODIPine [Norvasc] 5 mg PO HS Discharge Medication List Aspirin [Adult Low Dose Aspirin EC] 81 mg PO DAILY 10/11/17 [History] Atorvastatin [Lipitor] 10 mg PO DAILY 10/11/17 [History] Baclofen [Lioresal] 10 mg PO DAILY PRN 10/11/17 [History] Meloxicam [Mobic] 7.5 mg PO BID PRN 10/11/17 [History] Oxybutynin Chloride [Ditropan] 5 mg PO DAILY 10/11/17 [History] busPIRone HCl [Buspar] 15 mg PO BID 10/11/17 [History] Allopurinol [Zyloprim] 100 mg PO DAILY 04/22/20 [History] Lisinopril-Hctz 20-25 mg [Zestoretic 20-25] 1 tab PO DAILY 04/22/20 [History] Omeprazole 20 mg PO DAILY PRN 04/22/20 [History] atenoloL [Tenormin] 50 mg PO BID tab 04/23/20 [Rx] Follow up Appointment(s)/Referral(s): Rick Kim MD [STAFF PHYSICIAN] - 1-2 days Hasmukh Richardson MD [STAFF PHYSICIAN] - 2 Weeks Discharge Disposition: HOME SELF-CARE
[2020-04-23 11:39] VITALS: BP 102/66; PULSE 76
[2020-04-23] MEDS: SODIUM CHLORIDE 0.9% 1,000 ML IV SCH (12:19)
== END 2020-04-23 12:06 | disposition home or self-care (01) ==
LOC: EC 15:23 → 1SOBS 18:27
PROVIDERS: ADMIT Internal Medicine Geriatric Medicine; ATTEND Internal Medicine Geriatric Medicine
DX: I47.1 Supraventricular tachycardia (principal); R00.2 Palpitations; R53.83 Other fatigue; R42 Dizziness and giddiness; E78.5 Hyperlipidemia, unspecified; I10 Essential (primary) hypertension; I48.91 Unspecified atrial fibrillation; I49.3 Ventricular premature depolarization; K21.9 Gastro-esophageal reflux disease without esophagitis; N32.81 Overactive bladder; R09.02 Hypoxemia; Z79.1 Long term (current) use of non-steroidal anti-inflammatories (NSAID); Z79.82 Long term (current) use of aspirin; Z79.899 Other long term (current) drug therapy; Z90.710 Acquired absence of both cervix and uterus
CPT/HCPCS: 96361 ×3; 96372; 96374; 96375; 99285; 36415; 93005 ×2; 93306; 85379; 83880; 80061; 80053 ×2; 84443; 83605; 83690; 83735 ×2; 84484; 85025 ×2; 81001; 71046; G0378 ×2; J1644; J2765; J2405